=== PATIENT | female | born 1970 | race Caucasian/White ===

== ENCOUNTER 2024-08-31 08:22 | Observation (INO) ==
--- NOTE | 2024-07-29 15:17 | PAT Medication Instructions ---
Medication Instructions Date of Service July 29, 2024 Home Medications Medication Instructions Recorded walker #1 ea 07/13/24 Medication List: cholecalciferol (vitamin D3) 50 mcg (2,000 unit) capsule (Vitamin D3) 100 mcg PO QAM ibuprofen 200 mg tablet 1,000 mg PO TID PRN Pain MEDICATION INSTRUCTIONS: ASK your surgeon for instructions ibuprofen 200 mg tablet 1,000 mg PO TID PRN Pain DO NOT take the morning of surgery cholecalciferol (vitamin D3) 50 mcg (2,000 unit) capsule (Vitamin D3) 100 mcg PO QAM Other Notes Remember: NOTHING TO EAT OR DRINK AFTER MIDNIGHT If you have any questions please call us at [phone] or [phone] or [phone] or [phone]
--- NOTE | 2024-08-10 08:26 | Anesthesiology Consultation ---
Date of Service August 10, 2024 Assessment & Plan (1) Encounter for pre-operative examination: - check urine test STAT am DOS. - Outpatient joint assessment: Patient is currently scheduled for inpatient pathway. If re-evaluated and patient/surgeon requests outpatient pathway, patient is acceptable candidate for outpatient joint program from anesthesia standpoint pending surgeon's office assessment of pt motivation/support/completion of same day joint program preop requirements. Chart Review Chart Review: Acceptable Risk for Surgery and Patient seen in Pre Admission Testing Teaching & Discussion Pre-Anesthesia Teaching/Discussion Notes: Instructed NPO after midnight before surgery, except medications with 15 cc of water. Medication instructions provided according to the PAT guidelines. History Surgery Operation Date: 08/31/24 08:50 Proposed Procedures p Right Total Knee Arthroplasty - Anthony Mckeon MD Height/Weight Height: 5 ft 7 in Weight: 125 kg Allergies Allergy/AdvReac Type Severity Reaction Status Date / Time Penicillins Allergy Intermediate FACIAL/THROAT Verified 07/31/24 13:50 SWELLING AND RASH latex Allergy Mild localized Verified 07/31/24 13:50 skin irritation Medications Home Medications Medication Instructions Recorded Confirmed Last Taken walker #1 ea 07/13/24 07/31/24 Unknown cholecalciferol (vitamin D3) 50 100 mcg PO QAM 07/29/24 07/31/24 Unknown mcg (2,000 unit) capsule (Vitamin D3) ibuprofen 200 mg tablet 1,000 mg PO TID PRN Pain 07/29/24 07/31/24 Unknown ascorbate calcium (vitamin C) 500 500 mg PO QAM 07/31/24 07/31/24 Unknown mg tablet tirzepatide (weight loss) 2.5 2.5 mg (0.5 mL) subcut Q7D #2 mL 07/31/24 07/31/24 Unknown mg/0.5 mL subcutaneous pen injector (Zepbound) Additional Notes: Patient was advised to not take vitamin C morning of surgery and states prescribing provider advised she only start tirzepatide after surgery-she is aware if started before hand it would have to be stopped for 7 days. She denied additional medications or supplements. Past Medical History Medical History (Updated 08/10/24 @ 09:46 by Beverly Chavez PA-C) GERD (gastroesophageal reflux disease) with spicy food History of anesthesia reaction long time to wake up, sensitive to medications. did not wake up on a ventilator History of COVID-19 ~2020/2021: mild flu symptoms - resolved. HTN (hypertension) controlled, stable per pt Patient denies h/o stroke, seizures, heart attack, heart failure, DM, blood clots/DVTs or blood transfusions. Exercise / Class Metabolic Activity II 4-5 Yardwork/Stairs/Walk up hill (denies chest discomfort or shortness of breath with one flight of stairs) Past Family History Family History Other No family history of adverse response to anesthesia Denies family history of Ovarian cancer Prostate cancer Diabetes Myocardial infarction Breast cancer Colorectal cancer Hypertension Past Surgical History Surgical History H/O hernia repair umbilical hernia repair S/P tonsillectomy Past Anesthesia History No Family Hx of Anesthesia Complications and Other (see above) History of PONV No Hx of Motion Sickness and History of PONV (after hernia repair) Social History Smoking Status: Never smoker Do You Dip or Chew Tobacco: No Hx Alcohol Use: Yes Alcohol type: hard liquor alcohol intake frequency: a few times a month Hx Substance Use: No substance use type: does not use Review of Systems Snoring, denies witnessed apneas. Patient denies chest pain, shortness of breath, dyspnea on exertion, fever, chills, cough, wheezing, or palpitations. Physical Exam Vital Signs Vitals BP 145/89 P 77 TEMP 98.1 SP02 99% on RA RESP 18 Physical Patient resting comfortably in chair in no acute distress, alert and oriented, responding appropriately throughout visit Full cervical extension range of motion without pain TMD 3.5 finger breadths Mallampati Score 2 Dentition: intact, denies chipped or loose teeth, caps/crowns, implants or bridges Lungs: normal respiratory effort. Good air movement, clear throughout to auscultation, no adventitious breath sounds Cardiac: regular rate and rhythm, no murmurs noted Carotid arteries: negative bruit bilat Lab Results Anesthesia Preop Results Results Anesthesia Widget: WBC 6.12 K/ul (4.8-10.8) 08/10/24 Hgb 12.8 g/dl (12.0-16.0) 08/10/24 Hct 38.9 % (37.0-47.0) 08/10/24 Plt 282 K/uL (130-400) 08/10/24 Na 142 mmol/L (136-145) 08/10/24 K 4.1 mmol/L (3.5-5.1) 08/10/24 Cl 107 mmol/L (98-107) 08/10/24 CO2 28 mmol/L (21-32) 08/10/24 BUN 17 mg/dl (6-23) 08/10/24 Creat 0.68 mg/dl (0.6-1.2) 08/10/24 Glucose Level 92 mg/dl (70-99(Fasting)) 08/10/24 PT 10.6 Seconds (9.0-12.0) 08/10/24 PTT 27 Seconds (21-31) 08/10/24 INR 1.0 (0.9-1.1) 08/10/24 Blood Type O Positive 08/10/24 Antibody Screen NEGATIVE 08/10/24 Testing Electrocardiogram Date: 08/10/24 NSR, rate 79 bpm Low voltage QRS Chest X-Ray Date: 08/10/24 No acute chest disease.
--- NOTE | 2024-08-25 19:39 | History & Physical Report ---
Date of Service August 25, 2024 Assessment & Plan (1) Right knee DJD: 54-year-old female with advanced bilateral knee DJD. She is failed conservative treatment. She like to improve her quality of life and have her knees replaced. Plan: We discussed treatment option with the patient today. We can proceed with a right knee replacement. Risks and benefits of this procedure explained include but not limited to DVT, PE, , infection, neurovascular injury, thrombosis, need for further surgery in the future. The patient is fully aware that her young age this may need to be revised at some point in the future. Will likely put a stem in the tibia to maximize her stability based on her size and deformity. Will use aspirin for DVT prophylaxis. (2) Left knee DJD: (3) Morbid obesity: (4) GERD (gastroesophageal reflux disease): (5) HTN (hypertension): History of Present Illness Chief Complaint: . Bilateral knee pain discomfort and stiffness. Primary Care Provider: Elijah Wang DO . The patient is a 54-year-old female referred by Dr. Rodriguez for treatment of her knees. Got a long history of bilateral knee pain discomfort describes gotten worse over time. No particular injury. Has had her knees aspirated and injected by Dr. Tay which helped for just a couple days notes about it. Pains become more debilitating. She has a limited walking tolerance of about 2 blocks. She waddles when she walks. She got constant pain. She ready to do with definitive treatment to try and improve her quality of life. Allergies Allergy/AdvReac Type Severity Reaction Status Date / Time Penicillins Allergy Intermediate FACIAL/THROAT Verified 07/31/24 13:50 SWELLING AND RASH latex Allergy Mild localized Verified 07/31/24 13:50 skin irritation Home Medications Medication Instructions Recorded Confirmed Type walker #1 ea 07/13/24 07/31/24 Rx cholecalciferol (vitamin D3) 50 100 mcg PO QAM 07/29/24 07/31/24 History mcg (2,000 unit) capsule (Vitamin D3) ibuprofen 200 mg tablet 1,000 mg PO TID PRN Pain 07/29/24 07/31/24 History ascorbate calcium (vitamin C) 500 500 mg PO QAM 07/31/24 07/31/24 History mg tablet tirzepatide (weight loss) 2.5 2.5 mg (0.5 mL) subcut Q7D #2 mL 07/31/24 07/31/24 Rx mg/0.5 mL subcutaneous pen injector (Zepbound) Past Med/Surg History Problem List Encounter for pre-operative examination Right knee DJD Left knee DJD Mass of right thigh Decreased range of motion of both hips Morbid obesity Knee pain Acute URI of multiple sites 10/16/22 Noncompliance Annual physical exam Medical History GERD (gastroesophageal reflux disease) with spicy food HTN (hypertension) controlled, stable per pt History of COVID-19 ~: mild flu symptoms - resolved. History of anesthesia reaction long time to wake up, sensitive to medications. did not wake up on a ventilator Surgical History S/P tonsillectomy H/O hernia repair umbilical hernia repair Family History Other No family history of adverse response to anesthesia Denies family history of Ovarian cancer Prostate cancer Diabetes Myocardial infarction Breast cancer Colorectal cancer Hypertension Social History Smoking Status: Never smoker Second Hand Exposure: No; Do You Dip or Chew Tobacco: No; Hx Alcohol Use: Yes Alcohol type: hard liquor Alcohol Intake Frequency: Monthly or Less Hx Substance Use: No Preferred Language: German Communication Ability: Effective Traveling Buyer Required: No Beliefs That Will Affect Care: None marital status: Current Living Situation: Spouse current occupational status: employed current occupation: [employer] Feels Safe at Home: Yes caffeine: Yes (coffee and tea ) Dental Care, Regularly: Yes Physical Activity Frequency: 1-2 Times per Week Physical Activity Frequency Comment: working Seatbelt Use: always Sunscreen Use: Yes Assistive Devices: Glasses Review of Systems All systems reviewed & are unremarkable except as noted in HPI & below. Physical Exam . Physical examination reveals a pleasant middle-age female but looks in pretty good health. Examination of both [id number]-[id number] patient walks with a waddling gait. Good varus alignment of both knees. Moderate soft tissue envelope. Examination of the right knee reveals varus deformity. She is tender over the medial joint line. Small knee effusion. Some slight laxity to varus valgus testing. Range of motion 5-1 20. No pain with hip motion. Examination of left knee reveals a similar varus deformity. Tender over the medial joint line. Range of motion 5-1 20. No instability. No pain with hip motion. Constitutional WD/WN, vitals as above Respiratory normal respiratory effort, lungs clear to auscultation Cardiovascular RRR, no murmur, no edema Gastrointestinal (Abdomen) normal bowel sounds, soft, nontender, no hepatosplenomegaly Results & Data Results & Data Laboratory Results . Diagnostic Findings . X-rays of both knees were reviewed. Shows advanced bilateral knee DJD. Got complete loss of the medial joint space in both knees. She got varus deformity to her knee. The right knee is a little bit worse than the left. PG Care Time/CCT Total # of Minutes Spent Total Time Spent with Patient: Total time spent is greater than 50% in coordination of care (as documented) at patient's floor/unit and/or counseling patient: Coding Level of Care Code None Diagnoses Right knee DJD M17.11 Left knee DJD M17.12 Morbid obesity E66.01 GERD (gastroesophageal reflux disease) K21.9 HTN (hypertension) I10
[~2024-08-31 08:22] MED LIST: BUPIVACAINE 0.25% PF 30 ML VIAL ONE; BUPIVACAINE 0.5 % 5 MG/1 ML PF 10ML VIAL ONE; [UNRECOGNIZED DRUG - REMARK] SCH; ceFAZolin 3000MG 3,000 MG/72.5 ML BAG IV SCH
--- NOTE | 2024-08-31 08:41 | History & Physical Bridge Note ---
Date of Service August 31, 2024 History & Physical Bridge Note I have examined the patient, reviewed the History & Physical and in the interval since the performance of the History & Physical I have noted the following changes of clinical significance: no changes noted
[2024-08-31] MEDS ORDERED: MIDAZOLAM HCL 1 MG/ML 2ML VIAL ONE (09:29)
[2024-08-31] MEDS ORDERED: fentaNYL citrate PF 100 MCG/2 ML VIAL ONE (09:29)
[2024-08-31] MEDS: CeleBREX 200 MG CAP PO SCH (09:30)
[2024-08-31] MEDS: ACETAMINOPHEN 500 MG TAB PO SCH ×2 (09:30→20:09)
[2024-08-31] MEDS: dexAMETHasone**PF** 10 MG/ML VIAL IV SCH (09:30)
[2024-08-31] MEDS: METOCLOPRAMIDE HCL 10 MG TABLET PO SCH (09:31)
[2024-08-31] MEDS: FAMOTIDINE 20 MG TAB PO SCH (09:31)
[2024-08-31] MEDS: SCOPOLAMINE 1 MG/72 HR TDSY PATCH TD ONE ×2 (09:38→09:39)
[2024-08-31] MEDS ORDERED: ePHEDrine sulfate 50 MG/ML AMP IV PRN (09:41)
[2024-08-31] MEDS ORDERED: ONDANSETRON INJ 2 MG/ML 2 ML VIAL IV PRN ×2 (09:41→15:34)
[2024-08-31] MEDS: LR 500ML BOLUS, THEN 15ML/HR IV SCH (09:41)
[2024-08-31] MEDS ORDERED: ATROPINE SULFATE 0.1 MG/ML 10ML SYR IV PRN (09:41)
[2024-08-31] MEDS ORDERED: fentaNYL citrate PF 100 MCG/2 ML VIAL IV PRN (09:41)
[2024-08-31] MEDS ORDERED: PROPOFOL IV EMULSION 10 MG/ML 100 ML VIAL IV ONE (09:55)
[2024-08-31] MEDS ORDERED: KETAMINE HCL 10MG/ML SYR ONE (09:58)
[2024-08-31] MEDS ORDERED: ONDANSETRON INJ 2 MG/ML 2 ML VIAL ONE (10:00)
[2024-08-31] MEDS: ceFAZolin 3000MG 3,000 MG/72.5 ML BAG IV SCH (10:50)
[2024-08-31] MEDS: ORTHO JOINT ANESTHETIC ONE (11:17)
[2024-08-31] MEDS: TRANEXAMIC ACID 1,000 MG **IV Intra-op IV SCH (11:31)
[2024-08-31] MEDS: ROPIV 0.5% 246mg, Ketorolac 30mg, EPINEPHrine 0.5mg in NSS INFIL SCH (11:50)
[2024-08-31] MEDS: VANCOMYCIN HCL 1000MG/20ML VIAL ONE (11:50)
--- NOTE | 2024-08-31 12:39 | Operative Report ---
PG Post Operative Report Pre & Post Diagnosis Operation Date: 08/31/24 10:40 Pre-Op Diagnosis: Right Knee Degenerative Joint Disease Post-Op Diagnosis: Right Knee Degenerative Joint Disease I identified the patient and participated in the time-out.: Yes Procedure Operation Date: 08/31/24 10:40 Actual Procedures p Right Total Knee Arthroplasty(Right) - Anthony Mckeon MD Surgeon Anthony Mckeon MD Spiral Runner LUCERO Cortes Estimated Blood Loss 50 Findings Consistent with Post-Op Diagnosis Operative findings revealed advanced right knee tricompartment DJD. She had extensive grade 4 [id number] disease in all 3 compartments. Large osteophytes in all 3 compartments. Moderate to large knee joint effusion. Specimens Right knee sent for pathology. Anesthesia Type Spinal MAC Complications none Disposition Accompanied Patient To Recovery: No Indications Patient is a 54-year-old female whose had a long history of gradual progressive increasing bilateral knee pain discomfort. She been through extensive conservative treatment which became less successful over time. X-rays show revealed severe arthritis in both knees. She elected proceed with right total knee arthroplasty. Of note, this patient is a fairly large with a significant BMI with a very a young age and the severely deformed the knee. I was concerned that have to add some additional constraint and therefore we did I did place a stem in the tibia in order to maximize her knee stability and limit her risk of needing further surgery in the future/revision surgery. Description of Procedure Operative implants consist of: 1. Biomet Vanguard size 70 right posterior stabilized femoral component. 2. Biomet size 71 Vanguard 360 tibial tray with a 14 x 80 mm offset extension with a 5 mm offset and a small cruciate wing. 3. 10 mm posterior stabilized polyethylene insert. 4. 31 x 8 all poly patella. The patient was taken to the operating, identified, and placed on the operating table in the supine position but all contact areas were appropriately padded. IV antibiotics fibra anesthesia team. A spinal anesthetic and adductor canal block had been Weida in the holding area. A Yang catheter was placed in sterile fashion. Right thigh drape was then placed. The right lower extremity was then prepped and draped in the usual sterile fashion. The right leg was elevated and exsanguinated with use of an Esmarch and a turn was placed at 300 mmHg. An anterior approach to the right knee was then performed to longitudinal incision centered over the patella. Sharp dissection scalp through subcutaneous tissue down the extensor mechanism. A medial parapatellar arthrotomy incision was made. Some subperiosteal dissection was carried out medially. The fat pad was resected from Neath patella tendon. The lateral patellofemoral ligament was released. Patella subluxated laterally and the was flexed. The osteophytes taken on distal femur. The ACL and PCL were then released and the distal femur and the tibia subluxated anteriorly. I then resected the tibial eminence. We then began reaming the tibial canal up to a size 14 and the left the IM reamer in place. The proximal tibial cut was made remove out of millimeter bone from most deficient aspect the medial tibial plateau. The tibia was then sized to a size 71. The proximal tibia was then prepared for a 5 mm offset stem with an 80 x 14 mm extension. This tray was assembled and placed. Attention drawn the femur. The distal femur examined the sharp drop with intramedullary canal was suction. A right 5 degree valgus cutting guide was placed but the distal femoral cutting block was pinned in place. This femoral cut was made to take an additional 3 mm bone off distal femur. The femur was then sized to a size 70. The AP cutting block was pinned parallel to the epicondylar axis which was 4 degrees of external rotation. The anterior cut, anterior chamfer, posterior cut, posterior chamfer cuts were made. The box cutting guide was then placed and adjusted slightly laterally. The box cut was made. The knee was flexed. The remnants of the medial and lateral menisci were excised. The osteophytes taken off the posterior aspect the femur. A trial femoral component was placed. We then trialed the knee and the 10 mm insert fit most appropriately. I did assess the stability and I did not feel like I needed a increased constrained insert as the knee was quite stable in extension. Attention drawn the patella. The patella was cleaned of all soft tissue. Patella thickness measured 20 mm in thickness was cut down to 12. Sized to a size 31 patella. The lug holes were drilled for the 31 patella. The lateral osteophytes removed. Patella button was placed. Knee was taken through range of motion and the patella tracked nicely with no thumbs test. Attention drawn to place the permanent components. All trial components were removed. Bone plug was placed in the distal femur limit blood loss. A double batch Palacos G cement was mixed. I did add an additional gram of vancomycin due to who were increased size and soft tissue envelope. A Biomet Vanguard size 70 right posterior stabilized femoral component, size 71 tibial tray with an 80 x 14 mm offset stem with a 5 mm offset the small cruciate wing was then cemented in place along with a 10 mm posterior Byce polyethylene insert and a 31 x 8 all poly patella. The knee was brought out in full extension till cement hardened. Cement final cement check was performed. The pericapsular tissues were injected with total 100 cc of Ortho mix. Patient did receive 1 g tranexamic acid. The tourniquet was then let down for tourniquet time 68 minutes. Hemostasis assured use electrocautery. The extensor Metros then closed with combination 1 PDS suture and a 1 Vicryl suture in a [id number] fashion. Extensor Meclomen checked found to be intact with subcutaneous tissue then closed with 2 Dexon suture in a buried interrupted fashion skin was closed skin gómez. Leg was then cleaned and dried and sterile dressed with Xeroform, 4 fours, ABD pad, sterile cast padding, Paras bandage were applied. Patient then transferred to the recovery room in stable condition. The patient tolerated the procedure well and there were no complications. Jesus Manuel Cortes, my physician social science research assistant, was present for the entire procedure. His assistance was essential and required for appropriate patient positioning, prepping and draping, surgical exposure, performing the technical details of the operation, placement the implants, closure of the wound, and placement of the sterile bandage. I attest to the content of the Intraoperative Record and any orders documented therein. Any exceptions are noted below.
--- NOTE | 2024-08-31 13:43 | Anesthesiology Progress Note ---
Date of Service August 31, 2024 Anesthesia Post Procedure Vital Signs Vital Signs: Temp Pulse Resp BP Pulse Ox O2 Del Method 08/31/24 13:40 84 12 138/74 96 Room Air 08/31/24 13:25 78 14 135/73 98 Room Air 08/31/24 13:10 77 17 128/75 99 Room Air 08/31/24 13:00 78 17 133/70 98 Room Air 08/31/24 12:50 80 16 134/67 97 Room Air 08/31/24 12:40 81 16 139/67 99 Room Air 08/31/24 12:30 36.3 C L 84 18 123/66 97 Room Air 08/31/24 09:13 36.6 C 87 20 173/100 H 98 Room Air Pain Intensity Right Knee: Pain Intensity: 3 Transfer of Care Handoff Completed per policy Notes Mental Status: alert / awake / arousable Patient Amnestic to Procedure: Yes Nausea / Vomiting: adequately controlled Pain: adequately controlled Airway Patency, RR, SpO2: stable & adequate BP & HR: stable & adequate Hydration State: stable & adequate Neuraxial Anesthesia: was administered and sensory block is resolving Anesthetic Complications: no major complications apparent and Pt Satisfied with anesthetic care
--- NOTE | 2024-08-31 15:03 | XRay Report ---
XR knee RT 1 or 2V routine CLINICAL HISTORY: Postoperative evaluation. COMPARISON: Right knee radiographs April 10, 2024. FINDINGS: Alignment of the total right knee arthroplasty is anatomic. There is no periprosthetic fra cture or unexpected radiopaque foreign body. There are skin gómez. IMPRESSION: Expected findings following right knee arthroplasty. ACT 112: Negative or not required by law. Electronically signed by: Pelon Coombs M.D. 08/31/2024 3:02 PM
[2024-08-31] MEDS ORDERED: HYDROmorphone INJ 0.5 MG/0.5 ML SYR IV PRN (15:34)
[2024-08-31] MEDS ORDERED: TIRZEPATIDE 2.5 MG/0.5 ML SQ SCH (15:34)
[2024-08-31] MEDS ORDERED: bisacodyL 10 MG SUPP PR PRN (15:34)
[2024-08-31] MEDS ORDERED: ALUMINUM/MAGNESIUM SUSP 30 ML UDC PO PRN (15:34)
[2024-08-31] MEDS ORDERED: diphenhydrAMINE Capsule 25 MG CAP PO PRN (15:34)
[2024-08-31] MEDS ORDERED: MAGNESIUM HYDROXIDE SUSP 30 ML UDC PO PRN (15:34)
[2024-08-31] MEDS ORDERED: NALOXONE HCL 0.4 MG/1 ML VIAL/CARP IV PRN (15:34)
[2024-08-31] MEDS ORDERED: METOCLOPRAMIDE HCL INJ 5 MG/ML 2 ML VIAL IV PRN (15:34)
[2024-08-31] MEDS ORDERED: [UNRECOGNIZED DRUG - OTHER] SQ SCH (15:34)
[2024-08-31] MEDS: KETOROLAC 30 MG/ML VIAL IV SCH (16:20)
[2024-08-31] MEDS: CHECK SCOPOLAMINE PATCH PLACEMENT SCH (16:23)
[2024-08-31] MEDS: ASCORBIC ACID 500 MG TAB PO SCH (17:50)
[2024-08-31] MEDS: ceFAZolin 2000MG 2,000 MG/15 ML SYR IV SCH (18:17)
[2024-08-31] MEDS: TRANEXAMIC ACID / 0.7% NACL 1,000 MG/100 ML BAG IV SCH (18:22)
[2024-08-31] MEDS: SENNA 8.6 MG TAB PO SCH ×2 (20:09)
[2024-08-31] MEDS: ASPIRIN 81 MG ECTAB PO SCH (20:10)
[2024-08-31] MEDS: DOCUSATE SODIUM 100 MG CAP PO SCH (20:10)
[2024-09-01 03:20] VITALS: RESP 18; TEMP 98.1
[2024-09-01 07:06] LABS: BUN Creatinine Ratio 23.2 (10-20); Calcium 8.9 mg/dl (8.6-10.3); Creatinine Clr Calc Pharmacy 128.2 ml/min; Potassium 4.6 mmol/L (3.5-5.1)
[2024-09-01 07:11] LABS: Hematocrit (blood only) 31.3 % (37.0-47.0); Hemoglobin 10.5 g/dl (12.0-16.0); Mean Corpuscular Hemoglobin 28.2 pg (25.0-34.0); Mean Corpuscular Hgb Conc 33.5 g/dL (32.0-36.0); Mean Corpuscular Volume 84.1 fL (80.0-100.0); Mean Platelet Volume 10.1 fL (9.4-12.4); Platelet Count 224 K/uL (130-400); RDW Coefficient of Variation 12.9 % (11.5-14.5); RDW Standard Deviation 39.1 fL (36.4-46.3); Red Blood Count 3.72 M/uL (4.20-5.40); White Blood Count 11.75 K/ul (4.8-10.8)
[2024-09-01 07:24] VITALS: BP 149/80; PULSE 54; O2SAT 98
[2024-09-01] MEDS: dexAMETHasone 10 MG in SYRINGE 0 ML IV SCH (08:20)
[2024-09-01] MEDS: oxyCODONE HCL IR 5 MG TAB (IMMEDIATE RELEASE) PO PRN (08:22)
[2024-09-01] MEDS: MULTIVITAMIN TAB PO SCH (08:24)
[2024-09-01] MEDS: CHOLECALCIFEROL 25 MCG (1000 UNITS) TAB PO SCH (08:24)
--- NOTE | 2024-09-01 08:59 | Orthopedic Progress Note ---
Date of Service September 01, 2024 Assessment & Plan (1) Status post right knee replacement: Plan: 54-year-old female postop day 1 from a right knee replacement doing pretty well. Pains controlled. She is neurologically intact. Plan: 1. DVT prophylaxis including thigh-high teds, SCDs, aspirin twice a day. 2. PT/OT. She can fully weight-bear as tolerated. Right total knee protocol. 3. Pain control. She is doing reasonably well with current pain management. 4. Disposition. Plan is to discharge to home with some home health later today. (2) Left knee DJD: (3) Morbid obesity: Admission and Anticipated Discharge Date Admission Date: August 31, 2024 Subjective 54-year-old female postop day 1 from right knee replacement. She is doing pretty well. Had a reasonable night. Pains been controlled. No chest pain or shortness of breath. Not feeling dizzy or lightheaded. Physical Exam Physical Exam: Physical examination was a pleasant middle-age female. She is sitting up in bed looks pretty comfortable this morning. Examination of the right leg reveals leg to be well aligned. She can dorsiflex and plantarflex her foot appropriately. She is neurologically intact. She is got brisk capillary refill. Respiratory: normal respiratory effort, lungs clear to auscultation Cardiovascular: RRR, no murmur, no edema Gastrointestinal (Abdomen): normal bowel sounds, soft, nontender, no hepatosplenomegaly Results & Data Vital Signs (Past 12 Hours) Vital Signs Temp Pulse Resp BP Pulse Ox O2 Del Method 09/01/24 07:24 36.7 C 54 L 18 149/80 H 98 Room Air 09/01/24 03:19 36.7 C 58 L 18 131/76 97 Room Air 08/31/24 23:19 36.6 C 53 L 16 127/72 95 Room Air Laboratory Results Hemoglobin is 10.5. Hematocrit is 31.3. Electrolytes are stable.
[2024-09-01] MEDS: ASCORBIC ACID 500 MG TAB PO SCH (09:02)
--- NOTE | 2024-09-03 07:45 | Discharge Summary ---
Date of Service September 03, 2024 Admission HPI (Per Admitting) . The patient is a 54-year-old female referred by Dr. Rodriguez for treatment of her knees. Got a long history of bilateral knee pain discomfort describes gotten worse over time. No particular injury. Has had her knees aspirated and injected by Dr. Tay which helped for just a couple days notes about it. Pains become more debilitating. She has a limited walking tolerance of about 2 blocks. She waddles when she walks. She got constant pain. She ready to do with definitive treatment to try and improve her quality of life. Admission Exam (Per Admitting) . Physical examination reveals a pleasant middle-age female but looks in pretty good health. Examination of both [id number] patient walks with a waddling gait. Good varus alignment of both knees. Moderate soft tissue envelope. Examination of the right knee reveals varus deformity. She is tender over the medial joint line. Small knee effusion. Some slight laxity to varus valgus testing. Range of motion 5-1 20. No pain with hip motion. Examination of left knee reveals a similar varus deformity. Tender over the medial joint line. Range of motion 5-1 20. No instability. No pain with hip motion. Principal Diagnosis Same as "Discharge Diagnosis" noted below under Discharge Instructions. Discharge Data Procedures Performed Operation Date: 08/31/24 10:40 Actual Procedures p Right Total Knee Arthroplasty(Right) - Anthony Mckeon MD Ordered Studies 08/31/24 05:00 US - OR guided needle placemen Routine Hospital Course (1) Status post right knee replacement: This is a 54 year old patient admitted on 08/31/24 and underwent total knee arthroplasty. She tolerated the procedure well and there were no complications. Transferred to the PACU post op and later to the orthopedic floor for further care. She was given ancef for antibiotic prophylaxis. She was also given NOHELIA stockings, SCDs, and aspirin for DVT prophylaxis. Hemoglobin, hematocrit, and vital signs were monitored during her hospital stay and remained stable. Did not require any blood transfusions. There were no complications during her hospital stay. By post op day #1 the patient was tolerating a regular diet, pain was reasonably controlled with oral pain medicine, and she was participating in physical therapy. On post op day #1 the patient was discharged home and set up with home health care. She was given printed discharge instructions including prescriptions for extra strength tylenol, aspirin, cefadroxil, ketorolac, zofran, senokot, and oxycodone. Continue physical therapy, weight bearing as tolerated. Continue NOHELIA stockings. Follow up approximately 2 weeks post op or sooner if there are problems or concerns. Discharge Plan Discharge Items Patient Disposition: Home - Home Health Services Reason For Visit: Right Knee Osteoarthritis Discharge Diagnosis: Right knee replacement Activity: Per Instructions section Weightbearing: Full weightbearing Non-emergency contact: Surgeon Call non-emergency contact if: you have any medication questions Follow-up/Referrals: Elijah Wang, [Primary Care Provider] - Diet: Regular Addtl Attending Provider Instructions: ACTIVITY RECOMMENDATIONS: Diet: * You may resume previous diet. Physical Therapy: * You will go to physical therapy three times each week for four to six weeks after your surgery in order to regain your knee range of motion and to retrain your knee to work properly. * It is just as important to make sure you are getting your knee perfectly straight as it is to regain your knee bend. * Taking a pain pill an hour before therapy can help you have a more productive and comfortable therapy session. Home Exercise: * You were shown a series of exercises (heel props, heel slides, etc.) in the hospital. Do these exercises three to four times each day including the exercises you were shown in physical therapy. Walking: * Get up and walk several times each day. For the first four weeks, try not to stand or walk for more than one hour at a time. If you do stand or walk for more than one hour, you will not hurt anything, but your knee and leg will likely swell. * As you feel comfortable, you may change from the walker or crutches to a cane and then to independent walking. MEDICATIONS: New Medicine: * You will likely be taking one or more of these medications: 1. Oxycodone - A quick and shorter-acting pain medication. Take one to two tablets every six hours to lessen your pain. 2. Aspirin - Thins your blood to lessen the chance of forming a blood clot. * The most common side effects of pain medicine and iron are nausea and constipation. If nausea or constipation is too much of a problem or if you have any questions about your new medicines or doses, call [facility] at . We will try to help you manage these issues. "VERY IMPORTANT TO READ AND REVIEW" Pain: * The immediate post-operative period after knee replacement surgery is often quite painful. * You are given a prescription for pain medicine. You should take it, as directed, when you need it, especially before physical therapy and before going to bed. Pain that interferes with sleep is very common and can last several months. * You will likely need pain medicine for the first four to six weeks. It will not stop all of the pain. The pain will lessen and as you feel better, you may change to milder pain medicine such as Tylenol. * The most common side effects of pain medicine are nausea and constipation, so don't take more than you need. SPECIAL CARE INSTRUCTIONS: TEDs/Elastic Stockings: * The white elastic stockings help limit swelling and prevent blood clots from forming in your legs. The more you wear them, the more they work. * Wear them for six weeks after knee replacement surgery and four weeks after partial knee replacement. Incision Site Care: * Remove dressing postoperative day 2 and then shower. Keep direct shower pressure off the incision site. * After showering, cover gómez with dry gauze and change daily or more frequently if the dressing is getting saturated with drainage. * Use the NOHELIA stockings to hold dressing in place. DO NOT apply tape on the skin. * May completely stop using bandage if wound is dry and no drainage * [place] are removed between 2 and 3 weeks post-op. If your follow-up appointment is made before 2 weeks, please have your appointment re- scheduled. It is too early to remove the ógmez. Prevention of Infection: * Take antibiotics one hour before any dental cleaning, dental work, urological procedure, gastrointestinal procedure or any invasive surgery in order to prevent your new joint from getting infected. * You may get the antibiotics from the doctor performing the procedure or you may call our office at [phone] before and we will call in a prescription to the pharmacy of your choice. Things to Watch For: * Drainage from the incision site that occurs more than one week after your surgery. * Severely increased knee/leg pain or swelling. * Increased redness at the incision site. * Fever above 102 degrees Fahrenheit. * Unusual chest pain or shortness of breath. * Unusual pain or burning with urination. Call [facility] at [phone] with any of the above problems or if you have any questions about your medicines or recovery. FOLLOW UP VISIT: Make an appointment to see your doctor for approximately two weeks after surgery for a progress check and staple removal by calling the office at [phone]. Pending Studies at Discharge: No Stand-Alone Forms: My [facility], Smoking Cessation Medications and DC Order Prescriptions: Continued (DME) walker Misc See Rx Instructions .MEDSUPPLY Qty: 1 0RF Rx Instructions: As directed oxycodone 5 mg tablet 5 - 10 mg PO Q8H PRN (Reason: pain) Qty: 40 0RF Patient Comments: post op Rx Instructions: Take as needed for pain. Do not take more than 6 tablets per day. ondansetron 4 mg tablet,disintegrating 4 mg PO Q8 PRN (Reason: nausea) Qty: 20 1RF Patient Comments: post op Rx Instructions: Take as needed for nausea ketorolac 10 mg tablet 10 mg PO Q6 5 Days Qty: 20 0RF Patient Comments: post op Rx Instructions: Take 4 times per day with food for 5 days to lessen pain and swelling. sennosides [Senokot] 8.6 mg tablet 8.6 mg PO BID 14 Days Qty: 28 0RF Patient Comments: post op Rx Instructions: Take two times a day to prevent/treat constipation acetaminophen [Tylenol Extra Strength] 500 mg tablet 1,000 mg PO TID 30 Days Qty: 180 0RF Patient Comments: post op Rx Instructions: Take 3 times per day to lessen pain. aspirin [Reinaldo Low Dose Aspirin] 81 mg tablet,delayed release (DR/EC) 81 mg PO BID 45 Days Qty: 90 0RF Patient Comments: post op Rx Instructions: Take to prevent blood clots. cefadroxil 500 mg capsule 500 mg PO BID 7 Days Qty: 14 0RF Patient Comments: post op Rx Instructions: Take 1 cap twice a day to prevent infection ascorbate calcium (vitamin C) 500 mg tablet 500 mg PO QAM Zepbound 2.5 mg/0.5 mL pen injector 2.5 mg subcut Q7D Qty: 2 0RF Patient Comments: has not started yet cholecalciferol (vitamin D3) [Vitamin D3] 50 mcg (2,000 unit) Capsule 100 mcg PO QAM Discontinued ibuprofen 200 mg Tablet 1,000 mg PO TID PRN (Reason: Pain) Krames/Other Patient Handouts: Knee Replace Home Recovery Admission Data Admit Date/Time: 08/31/24 12:30 Attending Provider: Anthony Mckeon Admit Provider: Anthony Mckeon Primary Care Provider: Elijah Wang Other Providers: [facility],Home Health Other Interventions: Discharge Summary Assessment (RN) Last Done: 09/01/24 09:52
== END 2024-09-01 10:46 | disposition home health service (06) ==
LOC: ASU 08:22 → 3E 08:22
DX: Z88.0 Allergy status to penicillin; I10 Essential (primary) hypertension; M17.0 Bilateral primary osteoarthritis of knee; Z79.82 Long term (current) use of aspirin; Z88.5 Allergy status to narcotic agent; E66.01 Morbid (severe) obesity due to excess calories; K21.9 Gastro-esophageal reflux disease without esophagitis; Z68.41 Body mass index [BMI] 40.0-44.9, adult; Z79.899 Other long term (current) drug therapy; Z91.040 Latex allergy status